=== PATIENT | female | born 1930 | race Caucasian/White ===

== ENCOUNTER 2017-12-11 23:09 | Inpatient (IN) | payer OTHER ==
[~2017-12-11] VITALS: Ht 157.5 cm; Wt 73.0 kg
[~2017-12-11 23:09] MED LIST changes: -CEFDINIR300 MG PO; -CLONIDINE0.1 PO; -LIDODERM1 EACH TRANSDERM
[2017-12-11 23:10] VITALS: BP 187/90
[2017-12-11 23:25] LABS: HEMOGLOBIN 11.3 gm/dL (12.0-15.0); MCH 30.1 pg (26.0-34.0); MCHC 33.3 g/dL (28.0-37.0); MCV 90.5 fL (80.0-100.0); MPV 9.6 fl. (7.2-11.1); NUCLEATED RBCS 0 /100WBC; PLATELET COUNT* 129 thou/uL (150-400); RBC 3.75 mil/uL (4.20-5.00); RDW-CV 13.1 % (10.5-14.5)
[2017-12-11 23:33] LABS: ANION GAP 8 mmol/L (7-16); BUN 27 mg/dL (7-18); CHLORIDE 100 mmol/L (98-107); CO2 27 mmol/L (21-32); CREATININE 1.1 mg/dL (0.6-1.3); GLUCOSE 121 mg/dL (70-99); POTASSIUM 4.1 mmol/L (3.5-5.1); PROTIME 9.9 Seconds (9.20-11.50); SODIUM 135 mmol/L (136-145)
[2017-12-11 23:44] LABS: ALBUMIN 3.1 g/dL (3.4-5.0); ALKALINE PHOSPHATASE 123 U/L (46-116); LIPASE 117 U/L (73-393); NT-PRO BRAIN NAT PEPTIDE 853 pg/mL (<300); SGOT 23 U/L (15-37); SGPT 19 U/L (30-65); TOTAL BILIRUBIN 0.3 mg/dL (<0.1-1.0); TOTAL PROTEIN 6.7 g/dL (6.4-8.2); TROPONIN-I LEVEL <0.06 ng/mL (<0.06)
[2017-12-12 00:06] LABS: ABSOLUTE BASOPHILS 0.1 thou/uL (0.0-0.2); ABSOLUTE EOSINOPHILS 0.1 thou/uL (0.0-0.7); ABSOLUTE LYMPHOCYTES 0.2 thou/uL (0.8-5.3); ABSOLUTE MONOCYTES 0.6 thou/uL (0.0-1.2); ABSOLUTE NEUTROPHILS 6.1 thou/uL (1.6-8.1); PLATELET ESTIMATE DECREASED
[2017-12-12 00:07] LABS: LARGE PLATELETS OCCASIONAL
[2017-12-12 00:10] LABS: URINE BILIRUBIN NEGATIVE (Negative); URINE BLOOD NEGATIVE (Negative); URINE CLARITY CLEAR; URINE COLOR YELLOW; URINE GLUCOSE-RANDOM NEGATIVE (Negative); URINE KETONES NEGATIVE (Negative); URINE LEUKOCYTES-REFLEX TRACE (Negative); URINE NITRITE-REFLEX NEGATIVE (Negative); URINE PROTEIN NEGATIVE (Negative); URINE SPECIFIC GRAVITY 1.015 (1.005-1.030); URINE UROBILINOGEN 0.2 E.U./dl (0.2-1.0)
[2017-12-12 00:42] LABS: CASTS None Seen /LPF (None Seen); SQUAMOUS 4-10 Moderate /LPF (0-3)
[2017-12-12 00:43] LABS: URINE WBC-REFLEX 6-15 Few /HPF (0-5)
[2017-12-12 00:44] LABS: CRYSTALS None Seen /LPF (None Seen); URINE RBC None Seen /HPF (0-2)
[2017-12-12 04:10] VITALS: BP 142/66
[2017-12-12 05:09] VITALS: BP 163/71
[2017-12-12] MEDS ORDERED: CLONIDINE0.1 PO (08:38)
[2017-12-12 09:01] VITALS: BP 152/88
[2017-12-12] MEDS ORDERED: CEFDINIR300 MG PO (10:11)
[2017-12-12] MEDS ORDERED: LIDODERM1 EACH TRANSDERM (10:13)
[2017-12-12 10:45] VITALS: BP 152/88
== END 2017-12-12 11:15 | disposition home or self-care (01) | DRG 690 ==
LOC: M.ERS 23:09 → M.ORTHSURG 12-12 02:04 → M.TBA-ER 12-12 02:04 → M.ORTHSURG 12-12 04:21
PROVIDERS: Emergency Medicine; ADMIT Internal Medicine
DX: N39.0 Urinary tract infection, site not specified (principal); I31.3 Pericardial effusion (noninflammatory); I10 Essential (primary) hypertension; Z88.0 Allergy status to penicillin; Z82.49 Family history of ischemic heart disease and other diseases of the circulatory system

== ENCOUNTER → 2017-12-11 | Outpatient (CLI) | payer OTHER ==
[~2017-12-11] MED LIST: BYSTOLIC 5 MG5 M1 PO; CATAPRES-TTS 10.1 M1 TRANSDERM; CEFDINIR300 MG PO; CLONIDINE0.1 PO; HYDROCHLOROTH12.5 M1 PO; HYDROCHLOROTH12.5 MG PO; LIDODERM1 EACH TRANSDERM; LISINOPRIL20 MG PO; LOPRESSOR100 M1 PO; MACROBID 100 M100 M1 PO; METOPROLOL SUC100 MG PO; NOHOMEMEDICATIONS; PRINIVIL20 MG PO; TOPROL XL25 MG PO
== END ==
LOC: M.RAD 10:49
DX: S22.41XA Multiple fractures of ribs, right side, initial encounter for closed fracture (principal); X58.XXXA Exposure to other specified factors, initial encounter; Y93.89 Activity, other specified; Y92.89 Other specified places as the place of occurrence of the external cause; Y99.8 Other external cause status

== ENCOUNTER → 2020-02-18 | Outpatient (CLI) | payer OTHER ==
[~2020-02-18] MED LIST changes: +CEFDINIR300 MG PO; +CLONIDINE HCL0.1 MG PO; +CLONIDINE0.1 PO; +FUROSEMIDE 20 M20 M1 PO; +HYDRALAZINE 5050 MG PO; +LIDODERM1 EACH TRANSDERM; +NORVASC 2.5 MG2.5 M1 PO
[2020-02-18 10:48] LABS: HEMATOCRIT 35.5 % (37.0-47.0); HEMOGLOBIN 12.3 gm/dL (12.0-15.0); MCH 31.5 pg (26.0-34.0); MCHC 34.5 g/dL (28.0-37.0); MCV 91.3 fL (80.0-100.0); MPV 7.8 fl. (7.2-11.1); RBC 3.89 mil/uL (4.20-5.00); RDW-CV 13.8 % (10.5-14.5); WBC 5.6 thou/uL (4.0-11.0)
[2020-02-18 11:14] LABS: ALBUMIN 3.9 g/dL (3.4-5.0); CALCIUM 9.8 mg/dL (8.5-10.1); CREATININE 1.4 mg/dL (0.6-1.3); POTASSIUM 4.7 mmol/L (3.5-5.1); TOTAL BILIRUBIN 0.4 mg/dL (<0.1-1.0); TOTAL PROTEIN 7.5 g/dL (6.4-8.2)
[2020-02-18 11:30] LABS: URINE BILIRUBIN NEGATIVE (Negative); URINE BLOOD NEGATIVE (Negative); URINE CLARITY CLEAR; URINE COLOR YELLOW; URINE GLUCOSE-RANDOM NEGATIVE (Negative); URINE KETONES NEGATIVE (Negative); URINE LEUKOCYTES-REFLEX NEGATIVE (Negative); URINE NITRITE-REFLEX NEGATIVE (Negative); URINE PROTEIN NEGATIVE (Negative); URINE UROBILINOGEN 0.2 E.U./dl (0.2-1.0)
== END ==
LOC: M.LAB 10:27
PROVIDERS: ATTEND Orthopaedic Surgery
DX: Z01.812 Encounter for preprocedural laboratory examination (principal); Z20.828 Contact with and (suspected) exposure to other viral communicable diseases; M16.12 Unilateral primary osteoarthritis, left hip

== ENCOUNTER 2020-02-25 08:26 | Inpatient (IN) | payer OTHER ==
--- NOTE | 2020-02-18 13:26 | EKG ---
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: : 1930 Requested By: Josiah Macias Order Number: [id number] Reading MD: Romero Ac Measurements Intervals [place] Rate: 80 P: -33 MO: 228 QRS: -68 QRSD: 121 T: 98 QT: 380 QTc: 439 Interpretive Statements Atrial-ventricular dual-paced rhythm No further analysis attempted due to paced rhythm Baseline wander in lead(s) I,aVR Compared to ECG 12/21/2016 16:57:03 Sinus rhythm no longer present Intraventricular conduction delay no longer present Left ventricular hypertrophy no longer present Early repolarization no longer present ST (T wave) deviation no longer present Electronically Signed On 02-18-2020 13:25:53 CDT by Romero Ac [email or web address] <ELECTRONICALLY SIGNED> By: Romero Ac MD, FAC 02/18/20 1325 1055 1055 Romero Ac MD, [facility] /EPI
[~2020-02-25] VITALS: Ht 152.4 cm; Wt 61.2 kg
[2020-02-25 09:00] VITALS: BP 140/78
--- NOTE | 2020-02-25 17:34 | NUR ---
PT REMAINED ALERT AND ORIENTED. PT POST OP HIP SURGERY. PT RESTING IN BED. PT HAS NOT GOTTEN UP OR VOIDED AT THIS TIME. PT DENIES ANY PAIN OR NAUSEA. PT ORIENTED TO ROOM AND EDUCATED ON USING CALL LIGHT WHEN NEEDING ASSISTANCE AND WHEN PAIN STARTS TO INCREASE. FALL RISK PRECAUTIONS IN PLACE. HOURLY ROUNDING COMPLETED. WILL CONTINUE TO MONITOR.
[2020-02-25 20:44] VITALS: BP 176/86
[2020-02-25 23:38] VITALS: BP 137/65
[2020-02-26 03:46] VITALS: BP 129/62
[2020-02-26 04:53] LABS: HEMOGLOBIN 9.7 gm/dL (12.0-15.0)
[2020-02-26 05:14] LABS: ALBUMIN 2.9 g/dL (3.4-5.0); CALCIUM 8.7 mg/dL (8.5-10.1); CREATININE 1.6 mg/dL (0.6-1.3); MAGNESIUM 1.8 mg/dL (1.8-2.4); POTASSIUM 4.8 mmol/L (3.5-5.1); TOTAL BILIRUBIN 0.4 mg/dL (<0.1-1.0)
[2020-02-26 06:08] VITALS: BP 140/72
[2020-02-26 07:20] VITALS: BP 145/67
--- NOTE | 2020-02-26 10:37 | NUR ---
CM COMPLETED INITIAL ASSESSMENT TO DISCUSS D/C PLANNING. PT A&O. PT'S SON, CELESTINE, AT BEDSIDE. PT LIVES IN [place]OW CELESTINE ALONE. CELESTINE AND WORK LONG DAYS, 12 HR /DAY. PT WANTS TO GO TO SNF FOR REHAB. CM PROVIDED PT WITH LIST OF PROVIDERS TO MAKE HER SELECTION. PT HAS HX W/VJOC, BUT DOESNT NOT PREFER TO RTRN THERE AT THIS TIME. PT HAS A WALKER. PT IS CURRENT W/VISITING [facility] FOR HOME CARE. PT SON STATED HE HAS ALREADY CONTACTE THEM RE PT MEDICAL TRACK. [facility] TO F/U W/PT RE: SNF CHOICE TO SEND REFERRALS.
[2020-02-26 12:00] VITALS: BP 92/50
[2020-02-26 16:00] VITALS: BP 110/50
--- NOTE | 2020-02-26 16:30 | NUR ---
SPOKE WITH PT.'S SON,CELESTINE BUSTILLO. HE HAD 3 CHOICES FOR SNFS FOR HIS MOM. 1) [facility] 2)[facility] 3)[facility]. [facility] IS NOT TAKING ADMISSIONS AT THIS TIME. CONNOR SPOKE WITH [facility] [phone]. FAXED REFERRAL TO HER AT [phone]. SHE WILL SUBMIT FOR INSURANCE AUTHORIZATION.
--- NOTE | 2020-02-26 17:27 | NUR ---
PT REMAINED ALERT AND ORIENTED AND BIT FORGFETFUL. PT DENIED ANY NAUSEA/VOMITING. PT RESTING IN BED AND UP TO CHAIR WITH THERAPY. FALL RISK PRECAUTIONS IN PLACE. HOURLY ROUNDING COMPLETED. WILL CONTINUE TO MONITOR.
[2020-02-26 20:00] VITALS: BP 125/57
[2020-02-27 05:02] LABS: HEMATOCRIT 25.7 % (37.0-47.0); MCH 31.7 pg (26.0-34.0); MCHC 34.8 g/dL (28.0-37.0); MCV 91.2 fL (80.0-100.0); MPV 8.8 fl. (7.2-11.1); RBC 2.82 mil/uL (4.20-5.00); WBC 6.9 thou/uL (4.0-11.0)
--- NOTE | 2020-02-27 05:04 | NUR ---
PT A&O, ON RA. TYLENOL GIVEN FOR TEMP. PT EDUCATED ON IS. DENIED PAIN, N/V. DRESSING TO LT HIP INTACT. CALL LIGHT WITHIN REACH. HOURLY ROUNDINGS MADE. WILL CONTINUE TO MONITOR.
[2020-02-27 05:16] LABS: CALCIUM 8.5 mg/dL (8.5-10.1); CREATININE 1.6 mg/dL (0.6-1.3); POTASSIUM 4.3 mmol/L (3.5-5.1)
[2020-02-27 05:45] VITALS: BP 124/62
[2020-02-27] MEDS ORDERED: CELEBREX 200 M200 M1 PO (07:37)
[2020-02-27] MEDS ORDERED: COLACE 100 MG100 MG PO (07:37)
[2020-02-27] MEDS ORDERED: HYDROCODON-ACE1 EAC7 PO (07:37)
[2020-02-27] MEDS ORDERED: XARELTO10 MG PO (07:37)
[2020-02-27] MEDS ORDERED: IRON160 M1 PO (07:40)
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
[2020-02-27 15:57] VITALS: BP 133/62
--- NOTE | 2020-02-27 17:28 | NUR ---
AM ASSESSMENT AND VITAL SIGNS COMPLETED DOCUMENTED. PT COMPLETED HER THERAPIES TODAY AND TOLERATED WELL. PT IS FRUSTRATED THAT HER DISCHARGE PLACEMENT HASN'T BEEN FINALIZED YET, ATTEMPTED TO EXPLAIN THE PROCESS OF INSURANCE AUTHORIZATION. FALL PRECAUTIONS AND HOURLY ROUNDING CONTINUE.
[2020-02-27 20:00] VITALS: BP 150/61
[2020-02-28 05:50] VITALS: BP 138/64
--- NOTE | 2020-02-28 06:55 | NUR ---
Alert and oriented x 4. L hip mepilex dressing clean,dry and intact. She is cooperative but she can easily be upset. She doesn't like male caregivers. She does walk well with gaitbelt and walker to the bathroom. She had pain meds x 2 this shift. She did sleep well. She is up in a chair this morning.
[2020-02-28 07:30] VITALS: BP 138/60
--- NOTE | 2020-02-28 08:53 | OP ---
[facility] [address] [place] [address] OPERATIVE REPORT Name: SEAN MCINTOSH Room: [address] IN .R.#: [id number] Admission: 02/25/20 Attend Phys: Neena Deutsch Discharge: Date of : 34 Report #: [id number] THIS REPORT FOR: //name// cc: Dipti Correa Linda J. DO ~ CC: Dipti Oro DATE OF SERVICE: 02/25/2020 PREOPERATIVE DIAGNOSIS: Left hip osteoarthritis. POSTOPERATIVE DIAGNOSIS: Left hip osteoarthritis. PROCEDURE: Left total hip arthroplasty. SURGEON: Josiah Macias II, DO. JAVA CORE DEVELOPER: MAGDA Jamison. ANESTHESIA: General endotracheal. ESTIMATED BLOOD LOSS: 300 mL. ANTIBIOTICS: Ancef preoperatively. DRAINS: Medium Hemovac. COMPLICATIONS: None. CONDITION OF THE PATIENT: Stable to recovery room. IMPLANTS: Listed in operative record and progress note. BRIEF HISTORY: The patient was seen in the preoperative area. Preoperative H and P was performed. Site was marked, questions were answered. Risks and benefits were discussed with the patient in detail about surgery. The patient wished to proceed risks. DESCRIPTION OF PROCEDURE: The patient was taken to the operative suite and placed supine on the operating table, given appropriate anesthesia. The patient's operative hip was sterilely prepped and draped in the [place] table leg ortega in the supine position. Surgery began by longitudinal incision over the anterior portion of the hip. This was carried down to the subcutaneous tissues. A small katiuska was then made in the tensor fascia. It was then split along its [facility] [address] [place] [address] OPERATIVE REPORT Name: SEAN MCINTOSH Room: [address] IN [facility].#: [id number] Admission: 02/25/20 Attend Phys: Neena Deutsch Discharge: Date of : 34 Report #: [id number] and retracted laterally. An H capsulotomy was then performed and careful hemostasis was maintained with electrocautery and Aquamantys. The head and neck cutting alignment guide was then checked with fluoroscopic guidance. Appropriate cut was made in the head and neck and this was removed. Attention was then turned to the acetabulum. Excess labrum was removed. It was then reamed in sequential fashion up to appropriate size. This showed excellent bleeding bone and excellent position on fluoroscopic guidance. The acetabular cup was then malleted into position and then secured with cancellous screws. Metal liner was then applied. The patient's leg was then rotated and extended in the [place] table to expose the femur. It was then broached in sequential fashion up to appropriate size. The appropriate neck was then trialed with appropriate head length and showed excellent fit and fill and excellent stability of the hip through all range of motion. These trials were then removed. Final stem was then malleted into position and the final head and neck was then malleted into position. It was reduced in appropriate fashion, checked with C-arm for appropriate leg length and showed an excellent leg length throughout the exam without evidence of dislocation upon range of motion and shuck testing. The wound was then copiously irrigated. Hemostasis was maintained with electrocautery and Aquamantys. Pain cocktail was injected. PRP gel sprayed throughout the internal aspects of the hip and drain was activated. The H capsulotomy was then closed with #1 Vicryl in wjgeac-oo-jzjal fashion. Tensor fascia was closed with #1 Vicryl in running fashion. Skin was closed with 2-0 Vicryl and running 3-0 Monocryl. Dermabond and sterile dressing applied. The patient transported to recovery room in stable condition. Counts were correct throughout the procedure. <ELECTRONICALLY SIGNED> By: Josiah Macias II, DO 02/28/20 0853 23 [id number] Macias II, DO /nt
[2020-02-28 09:45] VITALS: BP 138/60
--- NOTE | 2020-02-28 12:44 | NUR ---
SPOKE TO SON,CELESTINE,ON PHONE. DISCUSSED OTHER SNFS DA WAS OUT OT NETWORK FOR HER INSURANCE. HE SAID ANYWHERE THAT TAKES HER INS.WOULD BE FINE. HE WANTED CM TO TRY [facility] FIRST,HOWEVER. SPOKE WITH [facility]. SHE SAID THEY ARE CLOSED TO ADMISSIONS AT THIS TIME. LEFT MESSAGE AT [facility] ADMSISSIONS AND VOJC SPOKE WITH [place] AND FAXED HER CLINICALS. THEY COULD ACCEPT MEDICALLY AND SHE SUBMITTED AUTH. SHE CALLED AT THIS TIME AND HAS AUTHORIZATION. VAN SET UP FOR 2-2:30. NOTIFIED PT.AND SON. BOTH ARE AGREEABLE. HE BROUGHT HER BAG FROM HOME WITH CELL PHONE IN FRONT POCKET. GAVE SON, RICK NEELY PHONE #.
--- NOTE | 2020-02-28 14:33 | NUR ---
DISCHARGED TO [facility] FOR REHAB. IV DC'D WITH CATH CANNULA INTACT. PRESSURE APPLIED UNTIL BLEEDING CEASED AND TAPE AND COTTON BALL APPLIED. ALL PATIENTS BELONGINGS SENT WITH HER. REPORT CALLED TO ROBIN. PT LEFT VIA W/C BY W/C RAJENDRA. PAPERWORK GIVEN TO FINANCIAL REPORTING ANALYST. BELONGINGS TAKEN OUT BY [employer].
== END 2020-02-28 14:20 | DRG 470 ==
LOC: M.ORTHSURG 08:26 → M.TBA 08:26 → M.PRE 13:08 → M.ORTHSURG 16:55
PROVIDERS: Internal Medicine; Orthopaedic Surgery; ADMIT Internal Medicine; ATTEND Internal Medicine
PROC: 0SRB0JZ Replacement of Left Hip Joint with Synthetic Substitute, Open Approach (ICD-10-PCS; principal; 2020-02-25)
DX: M16.12 Unilateral primary osteoarthritis, left hip (principal); I10 Essential (primary) hypertension; Z88.1 Allergy status to other antibiotic agents; Z88.8 Allergy status to other drugs, medicaments and biological substances; Z95.0 Presence of cardiac pacemaker; Z79.899 Other long term (current) drug therapy

== ENCOUNTER 2021-07-30 00:08 | Emergency (ER) | payer OTHER ==
[~2021-07-30] VITALS: Ht 154.9 cm; Wt 64.4 kg
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
[~2021-07-30 00:08] MED LIST changes: +CELEBREX 200 M200 M1 PO; +COLACE 100 MG100 MG PO; +HYDROCODON-ACE1 EAC7 PO; +IRON160 M1 PO; +XARELTO10 MG PO
[2021-07-30 01:48] LABS: ABSOLUTE LYMPHOCYTES 0.3 thou/uL (0.8-5.3); ABSOLUTE MONOCYTES 0.3 thou/uL (0.0-1.2); ABSOLUTE NEUTROPHILS 1.8 thou/uL (1.6-8.1); BASOPHILS 0.3 %; EOSINOPHILS 1.3 %; HEMATOCRIT 48.8 % (37.0-47.0); HEMOGLOBIN 15.9 gm/dL (12.0-15.0); LYMPHOCYTES 12.2 %; MCH 30.2 pg (26.0-34.0); MCHC 32.7 g/dL (28.0-37.0); MCV 92.6 fL (80.0-100.0); MPV 8.8 fl. (7.2-11.1); NUCLEATED RBCS 0 /100WBC; PLATELET COUNT* 101 thou/uL (150-400); POLYS 74.2 %; RBC 5.27 mil/uL (4.20-5.00); RDW-CV 13.6 % (10.5-14.5); WBC 2.4 thou/uL (4.0-11.0)
[2021-07-30 01:55] LABS: CALCIUM 9.9 mg/dL (8.5-10.1); CREATININE 2.1 mg/dL (0.6-1.3); POTASSIUM 3.4 mmol/L (3.5-5.1)
[2021-07-30 02:00] LABS: ALBUMIN 4.3 g/dL (3.4-5.0); TOTAL BILIRUBIN 0.5 mg/dL (<0.1-1.0); TOTAL PROTEIN 7.9 g/dL (6.4-8.2)
[2021-07-30 02:47] LABS: URINE BILIRUBIN NEGATIVE (Negative); URINE BLOOD NEGATIVE (Negative); URINE CLARITY CLEAR; URINE COLOR YELLOW; URINE GLUCOSE-RANDOM NEGATIVE (Negative); URINE KETONES NEGATIVE (Negative); URINE LEUKOCYTES-REFLEX NEGATIVE (Negative); URINE NITRITE-REFLEX NEGATIVE (Negative); URINE PROTEIN NEGATIVE (Negative); URINE SPECIFIC GRAVITY 1.015 (1.005-1.030); URINE UROBILINOGEN 0.2 E.U./dl (0.2-1.0)
[2021-07-30 06:53] VITALS: BP 111/50
--- NOTE | 2021-07-30 10:58 | EKG ---
[place] [address] ELECTROCARDIOGRAM REPORT Name: SEAN MCINTOSH Room: [facility]#: [id number] Admission: 07/30/21 Attend Phys: Discharge: 07/30/21 Date of : 34 Date of Service: 07/30/21 0013 Report #: [id number] THIS REPORT FOR: //name// 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[place] : 1930 Requested By: Bertha Conley Order Number: [id number] MD: Darion Dodge Measurements Intervals [place]ita Rate: 80 P: 0 WA: 47 QRS: -72 QRSD: 169 T: 86 QT: 459 QTc: 530 Interpretive Statements A-V dual-paced complexes w/ some inhibition No further analysis attempted due to paced rhythm Artifact in lead(s) I,II,III,aVR,aVL,aVF,V1 Compared to ECG 02/18/2020 10:55:33 no change Electronically Signed On 07-30-2021 10:58:15 [employer]AREBACK RIDER by Darion Dodge [email or web address] <ELECTRONICALLY SIGNED> By: Darion Dodge MD, [facility] 07/30/21 1058 0013 0013 Darion Dodge MD, [facility] /EPI
== END 2021-07-30 06:53 | disposition still patient (30) ==
LOC: M.ERS 00:08
PROVIDERS: Personal Emergency Response Attendant
DX: F22 Delusional disorders (principal); Z20.822 Contact with and (suspected) exposure to COVID-19; I10 Essential (primary) hypertension; Z88.1 Allergy status to other antibiotic agents; Z88.8 Allergy status to other drugs, medicaments and biological substances